=== PATIENT | male | born 1965 | race Caucasian/White ===

== ENCOUNTER 2021-11-04 08:50 | Day surgery (SDC) | payer BC ==
--- NOTE | 2021-11-04 08:49 | P.GSHP ---
History of Present Illness H&P Date: 11/04/21 CHIEF COMPLAINT: Colon screen HISTORY OF PRESENT ILLNESS: The patient is a 56-year-old male who presents for colon screen. Lower endoscopy was offered for further evaluation and management. PAST MEDICAL HISTORY: Please see list. PAST SURGICAL HISTORY: Please see list. MEDICATIONS: Please see list. ALLERGIES: Please see list. SOCIAL HISTORY: No illicit drug use FAMILY HISTORY: No reports of Crohn disease or ulcerative colitis. REVIEW OF ORGAN SYSTEMS: CONSTITUTIONAL: No reports of fevers or chills. PHYSICAL EXAM: VITAL SIGNS: Stable GENERAL: Well-developed pleasant in no acute distress. HEENT: No scleral icterus. Extraocular movements grossly intact. Moist buccal mucosa. NECK: Supple without lymphadenopathy. CHEST: Unlabored respirations. Equal bilateral excursions. CARDIOVASCULAR: Regular rate and rhythm. Distal 2+ pulses. ABDOMEN: Soft, nontender, nondistended. MUSCULOSKELETAL: No clubbing, cyanosis, or edema. ASSESSMENT: 1. Colon screen. PLAN: 1. Recommend proceeding with a lower endoscopy Past Medical History Additional Past Medical History / Comment(s): achiness to neck r/t bone spur in neck makes index finger numb at times. occasional diarrhea History of Any Multi-Drug Resistant Organisms: None Reported Additional Past Surgical History / Comment(s): hernia repair -bilateral inguinal Past Anesthesia/Blood Transfusion Reactions: No Reported Reaction Smoking Status: Never smoker - Past Family History Father Additional Family Medical History / Comment(s): chrons Mother Family Medical History: No Reported History Medications and Allergies Home Medications Medication Instructions Recorded Confirmed Type Ibuprofen [Motrin Ib] 400 mg PO DIRECTED PRN 11/02/21 11/02/21 History Unk 50 Alive Men's Vitamin 1 tab PO DAILY 11/02/21 11/02/21 History Unk Ahswaganda 1 tab PO DAILY 11/02/21 11/02/21 History Unk Chondroitin 1 tab PO DAILY 11/02/21 11/02/21 History Unk Cranberry Supplement 1 tab PO DAILY 11/02/21 11/02/21 History Unk Fish Oil 1 tab PO DAILY 11/02/21 11/02/21 History Unk Lysine 1 tab PO DAILY 11/02/21 11/02/21 History Unk Vitamin C 1 tab PO DAILY 11/02/21 11/02/21 History Allergies Allergy/AdvReac Type Severity Reaction Status Date / Time No Known Allergies Allergy Verified 11/02/21 13:34
[~2021-11-04 08:50] MED LIST: LIDOCAINE 1% (10MG/ML) FOR IV START INTRADERMA PRN
[2021-11-04] MEDS: LACTATED RINGERS 1,000 ML IV SCH ×2 (09:06→09:20)
[2021-11-04] MEDS ORDERED: PROPOFOL 10 MG/ML 20 ML VIAL IV ONE (09:33)
[2021-11-04] MEDS ORDERED: LIDOCAINE 2% INJ 20 MG/ML (2 ML VIAL) ONE (09:33)
[2021-11-04] MEDS ORDERED: fentaNYL (PF) 50 MCG/ML 2 ML AMP ONE (09:33)
[2021-11-04 09:58] VITALS: BP 104/64; RESP 16
--- NOTE | 2021-11-04 10:08 | P.PCN ---
Date of Procedure: 11/04/21 Description of Procedure: PREOPERATIVE DIAGNOSIS: Family history colon polyps Colonoscopy screening POSTOPERATIVE DIAGNOSIS: Sigmoid colon polyp OPERATION: Colonoscopy to the ileocecal valve and appendiceal orifice, cecum Colonoscopy with cold forceps biopsy SURGEON: Radha Molina MD. ANESTHESIA: MAC. INDICATIONS: The patient is an 56-year-old male who presents family history of colon polyps. This is his first colonoscopy. Benefits and risks were described and informed consent was obtained. DESCRIPTION OF PROCEDURE: The patient had undergone Sutab prep. The patient had been brought into the operating room and laid in the left lateral decubitus position. After adequate intravenous sedation, the rectum was examined with 2% lidocaine jelly. The prostate was unremarkable. No external hemorrhoids were encountered. The rectal tone was within normal limits. No lesions were palpated in the rectal vault. An Olympus colonoscope was advanced until the cecum, ileocecal valve and appendiceal orifice were clearly viewed. The prep was good. No sigmoid diverticulosis was encountered. Colonic polyps were found and removed. No evidence of focal colitis was found. Retroflexion of the scope demonstrated grade 2 internal hemorrhoids without active bleeding or inflammation. The colon was desufflated. The patient had tolerated the procedure well. Withdrawal time was over 6 minutes. FINDINGS: Aronchick preparation quality scale 2 (1-5) Internal hemorrhoids, grade 2 No external hemorrhoids, grade 4. No arteriovenous malformations. No sigmoid diverticulosis Removal of 1 polyp: - Cold forceps biopsy at 15 cm from the anal verge, 4 mm polyp, sigmoid colon No focal colitis. RECOMMENDATIONS: Repeat colonoscopy 3 years, 2024 Plan - Discharge Summary Discharge Rx Participant: No New Discharge Prescriptions: Continue Unk Lysine 1 tab PO DAILY Unk Fish Oil 1 tab PO DAILY Unk Chondroitin 1 tab PO DAILY Unk 50 Alive Men's Vitamin 1 tab PO DAILY Unk Vitamin C 1 tab PO DAILY Unk Cranberry Supplement 1 tab PO DAILY Unk Ahswaganda 1 tab PO DAILY Ibuprofen [Motrin Ib] 400 mg PO DIRECTED PRN PRN Reason: Pain Discharge Medication List Ibuprofen [Motrin Ib] 400 mg PO DIRECTED PRN 11/02/21 [History] Unk 50 Alive Men's Vitamin 1 tab PO DAILY 11/02/21 [History] Unk Ahswaganda 1 tab PO DAILY 11/02/21 [History] Unk Chondroitin 1 tab PO DAILY 11/02/21 [History] Unk Cranberry Supplement 1 tab PO DAILY 11/02/21 [History] Unk Fish Oil 1 tab PO DAILY 11/02/21 [History] Unk Lysine 1 tab PO DAILY 11/02/21 [History] Unk Vitamin C 1 tab PO DAILY 11/02/21 [History] Follow up Appointment(s)/Referral(s): Radha Molina MD [STAFF PHYSICIAN] - As Needed Patient Instructions/Handouts: Colorectal Polyps (GEN) Activity/Diet/Wound Care/Special Instructions: Repeat colonoscopy 3 years, 2024 Discharge Disposition: HOME SELF-CARE
[2021-11-04 10:13] VITALS: PULSE 61
== END 2021-11-04 11:04 | disposition home or self-care (01) ==
LOC: ORWHC2ENDO 08:50
PROVIDERS: ATTEND Surgery Plastic and Reconstructive Surgery
DX: Z12.11 Encounter for screening for malignant neoplasm of colon (principal); K63.5 Polyp of colon; K64.1 Second degree hemorrhoids; Z83.71 Family history of colonic polyps; M54.2 Cervicalgia; Z98.890 Other specified postprocedural states; Z83.79 Family history of other diseases of the digestive system
CPT/HCPCS: 88305; 45380; J3010; J2704; J2001

== ENCOUNTER → 2022-04-22 | Outpatient (CLI) | payer BC ==
--- NOTE | 2022-04-22 11:12 | MM ---
Reason for Exam: Clinical finding. Indicated Problems: Lump or thickening of the right side (size 8) for 8 Month(s). Tissue Density: The breast tissue is almost entirely fat. Findings: Analyzed By CAD. No new suspicious masses, calcifications or distortions. Overall Assessment: Incomplete: need additional imaging evaluation, BI-RAD 0 Management: Diagnostic Breast Ultrasound of the right breast. Electronically signed and approved by: Abdirizak Chen DO
--- NOTE | 2022-04-22 11:28 | USB ---
Reason for Exam: Clinical finding. Technique: Method: Targeted. Findings: The lower section of the breast of the right breast was scanned. Ultrasound imaging of palpable abnormality Hyperechoic mass in the area of palpable abnormality in the upper abdomen very low chest is a 2.0 x 2.0 x 0.7 cm lesion. Lesion most compatible with fat-containing lesion such as lipoma. Overall Assessment: Benign, BI-RAD 2 Management: No follow up is required for this exam. A clinical breast exam by your physician is recommended on an annual basis and results should be correlated with mammographic findings. This exam should not preclude additional follow-up of suspicious palpable abnormalities. Results were given to the patient verbally at the time of exam. Electronically signed and approved by: Abdirizak Chen DO
== END | disposition home or self-care (01) ==
LOC: RADMAMWWP 10:09
PROVIDERS: ATTEND Family Medicine
DX: N63.10 Unspecified lump in the right breast, unspecified quadrant (principal); N63.20 Unspecified lump in the left breast, unspecified quadrant
CPT/HCPCS: 77062; 77066